=== PATIENT | female | born 1985 | race American Indian/Alaskan Native ===

== ENCOUNTER 2018-04-10 08:37 | Outpatient (CLI) | payer OTHER ==
--- NOTE | 2018-04-10 11:09 | Ultrasound Report ---
ULTRASOUND ABDOMEN LIMITED: TECHNIQUE: Transabdominal ultrasound with color Doppler interrogation. HISTORY: Abnormal liver enzymes. COMPARISON: none. FINDINGS: LIVER: Normal. BILIARY SYSTEM: Normal. PANCREAS: Normal. RIGHT KIDNEY: Normal. PROXIMAL AORTA: Normal. ASCITES: None. IMPRESSION: Unremarkable exam.
== END 2018-04-10 08:38 | disposition home or self-care (01) ==
LOC: US 08:37
PROVIDERS: ATTEND Student in an Organized Health Care Education/Training Program
DX: R74.8 Abnormal levels of other serum enzymes (principal); I10 Essential (primary) hypertension; Z87.891 Personal history of nicotine dependence
CPT/HCPCS: 76705